=== PATIENT | female | born 1990 | race Caucasian/White ===

== ENCOUNTER → 2016-11-15 | Outpatient (CLI) | payer BC ==
[~2016-11-15] MED LIST: ACET50TA PO; IBUP80TA PO; VITAPRTA PO
== END ==
LOC: M WUC 16:13
PROVIDERS: ATTEND Advanced Practice Midwife
DX: N91.2 Amenorrhea, unspecified (principal)

== ENCOUNTER → 2016-11-17 | Outpatient (CLI) | payer BC | LOC: M WUC 10:47 | PROVIDERS: ATTEND Advanced Practice Midwife | DX: Z34.81 Encounter for supervision of other normal pregnancy, first trimester (principal) ==

== ENCOUNTER → 2016-11-19 | Outpatient (CLI) | payer BC | LOC: M WUC 14:52 | PROVIDERS: ATTEND Advanced Practice Midwife | DX: Z34.81 Encounter for supervision of other normal pregnancy, first trimester (principal) ==

== ENCOUNTER → 2016-11-28 | Day surgery (SDC) | payer BC ==
[~2016-11-28] VITALS: Ht 162.6 cm; Wt 69.4 kg
[~2016-11-28] MED LIST changes: +KETOROLAC 60 MG/2 ML VIAL (J1885) As Ordered ONE; +LIDOCAINE 1% SDV INJ 30 ML VIAL As Ordered ONE; +LIDOCAINE 1% SDV INJ 30 ML VIAL XX ONE; +LIDOCAINE 2% INJ 100 MG/5 ML SDV (FOR ANES.) As Ordered ONE; +LR 1,000 ML IV SCH; +MIDAZOLAM INJ 2 MG/2 ML VIAL (J2250) As Ordered ONE; +ONDANSETRON 4MG/2ML VIAL (J2405) As Ordered ONE; +PROPOFOL 200 MG/20 ML VIAL As Ordered ONE; +SILVER NITRATE APPLICATOR As Ordered ONE; +no medications
--- NOTE | 2016-11-28 13:23 | RO ---
DATE OF PROCEDURE: 11/28/2016 PREOPERATIVE DIAGNOSIS: Intrauterine embryonic demise. POSTOPERATIVE DIAGNOSIS: Intrauterine embryonic demise. PROCEDURE: Suction dilation and curettage. SURGEON: Adilene Kerr MD [employer] GLAZER: None. ANESTHESIA: IV sedation with paracervical block. ESTIMATED BLOOD LOSS: 5 mL. INTRAVENOUS FLUIDS: 300 mL lactated Ringer solution. PREOPERATIVE ANTIBIOTICS: None. SPECIMENS: Products of conception. DESCRIPTION OF OPERATION: After informed consent was obtained and written content was reviewed, the patient was brought to the operating room where IV sedation was administered. She was then prepped and draped in a normal sterile fashion. A time out in the operating room was then performed identifying the patient, the procedure to be performed, as well as drug allergies. A bivalved speculum was then placed revealing the cervix. A paracervical block was then performed using 1% lidocaine, a total of 9 mL. The single tooth tenaculum was then placed on the anterior lip of the cervix. The uterus was sounded to 11 cm. The cervix was then sequentially dilated using Hanks dilators. A #9 curved uterine curette was then advanced through the cervical os to the level of the fundus. This was attached to suction. Suction was then deployed. The uterus was curetted in a 360 degree fashion with moderate amounts of tissue obtained. The suction curette was then removed. A sharp curette was then advanced through the cervical os to the level of the fundus. The uterus was curetted in 360 degree fashion with minimal amounts of tissue obtained. A second pass of the suction curette was then performed only productive of minimal amounts of blood. The curette was then removed from the cervical os. The single tooth tenaculum was removed. The tenaculum sites were hemostatic with silver nitrate. The speculum was then removed. The patient was then taken out of lithotomy position and was taken to recovery in stable condition. Counts were correct.
[2016-11-28 14:05] VITALS: BP 120/69
== END | disposition home or self-care (01) ==
LOC: M SDC 10:20
PROVIDERS: ATTEND Obstetrics & Gynecology
DX: O02.1 Missed abortion (principal); J00 Acute nasopharyngitis [common cold]
CPT/HCPCS: 59820; 85014; 85018; 88305; J1885; J2250; J2405; J3010

== ENCOUNTER → 2017-02-21 | Outpatient (CLI) | payer BC ==
[~2017-02-21] MED LIST changes: -KETOROLAC 60 MG/2 ML VIAL (J1885) As Ordered ONE; -LIDOCAINE 1% SDV INJ 30 ML VIAL As Ordered ONE; -LIDOCAINE 1% SDV INJ 30 ML VIAL XX ONE; -LIDOCAINE 2% INJ 100 MG/5 ML SDV (FOR ANES.) As Ordered ONE; -LR 1,000 ML IV SCH; -MIDAZOLAM INJ 2 MG/2 ML VIAL (J2250) As Ordered ONE; -ONDANSETRON 4MG/2ML VIAL (J2405) As Ordered ONE; -PROPOFOL 200 MG/20 ML VIAL As Ordered ONE; -SILVER NITRATE APPLICATOR As Ordered ONE
== END ==
LOC: M WUC 14:21
PROVIDERS: ATTEND Obstetrics & Gynecology
DX: Z32.01 Encounter for pregnancy test, result positive (principal)

== ENCOUNTER → 2017-02-23 | Outpatient (CLI) | payer BC | LOC: M WUC 14:43 | PROVIDERS: ATTEND Obstetrics & Gynecology | DX: Z32.01 Encounter for pregnancy test, result positive (principal) ==

== ENCOUNTER → 2017-04-10 | Outpatient (CLI) | payer BC ==
[2017-04-10 13:44] LABS: BASO % 0.3 % (0.0-1.0); EOS % 0.4 % (0.0-3.0); LARGE UNSTAINED CELL # 0.1 K/mm3 (0.0-0.4); LYMPH # 1.1 K/mm3 (1.5-6.5); LYMPH % 16.8 % (24.0-44.0); MEAN CORPUSCULAR VOLUME 85.8 fl (80.0-96.0); MONO # 0.4 K/mm3 (0.0-0.8); NEUTROPHILS # 4.9 K/mm3 (1.8-7.7); NEUTROPHILS % 75.5 % (36.0-66.0); PLATELET COUNT, AUTOMATED 343 k/mm3 (150-450); RED CELL DISTRIBUTION WIDTH 12.3 % (11.5-14.5); WHITE BLOOD COUNT 6.5 K/mm3 (4.0-10.0)
[2017-04-11 10:27] LABS: HBsAg Prenatal NEGATIVE (NEGATIVE)
== END ==
LOC: M SMT 11:13
PROVIDERS: ATTEND Advanced Practice Midwife
DX: Z34.81 Encounter for supervision of other normal pregnancy, first trimester (principal)

== ENCOUNTER → 2017-07-17 | Outpatient (CLI) | payer BC ==
[2017-07-17 13:52] LABS: MEAN CORPUSCULAR HEMOGLOBIN 31.3 pg (27.0-33.0); MEAN CORPUSCULAR VOLUME 86.9 fl (80.0-96.0); RED CELL DISTRIBUTION WIDTH 12.4 % (11.5-14.5); WHITE BLOOD COUNT 10.3 K/mm3 (4.0-10.0)
== END ==
LOC: M SMT 10:08
PROVIDERS: ATTEND Obstetrics & Gynecology
DX: Z34.82 Encounter for supervision of other normal pregnancy, second trimester (principal)

== ENCOUNTER → 2017-07-20 | Outpatient (CLI) | payer BC ==
--- NOTE | 2017-07-20 12:14 | REP ---
Clinical: Anatomical evaluation. Comparison: 07/03/2017 . Findings: Examination demonstrates a single live intrauterine in breech presentation. motion is identified by technologist. Placenta is noted anterior fundal and grade one without evidence for placenta previa or abruption. Amniotic fluid volume is normal. Cervix measures 4.6 cm in length and appears closed. No evidence for nuchal cord. Gestational age by LMP 25 weeks 5-day with JAY 10/28/2017 . Gestational age by current measurements 26 weeks 3-day with JAY date 10/23/2017 . FHR equals 139 beats per minute. Estimated weight 866 grams ( 48th percentile). Anatomical assessment demonstrates normal structures including cranium, choroid plexus, cavum, cerebellum/posterior fossa, facial features, lungs, diaphragm, stomach, cord insertion/three-vessel cord, kidneys/bladder, spine, and extremities. Impression: Single live intrauterine in breech presentation demonstrating appropriate interval growth. In conjunction with prior examinations, anatomical assessment is complete and normal. Signed by Kevin Castorena MD 07/20/2017 12:06 P
== END ==
LOC: M RAD 10:59
PROVIDERS: ATTEND Obstetrics & Gynecology
DX: Z36 Encounter for antenatal screening of mother (principal); Z3A.26 26 weeks gestation of pregnancy

== ENCOUNTER → 2017-09-28 | Outpatient (CLI) | payer BC ==
--- NOTE | 2017-09-28 11:08 | REP ---
Clinical: Growth evaluation. Comparison: 07/20/2017 . Findings: Examination demonstrates a single live intrauterine in cephalic presentation. motion is identified by technologist. Placenta is noted anterior and grade II/III without evidence for placenta previa or abruption. Amniotic fluid volume is below normal range. Cervix measures 3.0 cm in length and appears closed. No evidence for nuchal cord. Gestational age by LMP 35 weeks 5 days with JAY 10/28/2017 . Gestational age by current measurements 37 weeks 2 days with JAY 10/17/2017 . FHR equals 147 beats per minute. BPD 9.2 cm 37 weeks 3 days HC 33.3 cm 38 weeks 0 days AC 33.6 cm 37 weeks 4 days FL 7.2 cm 36 weeks 5 days HL 6.3 cm 36 weeks 5 days HC/AC ratio 0.99 Estimated weight 1201 grams ( 81st percentile). Amniotic fluid index equals 6.8 cm (7.8 - 24.9). Umbilical cord SD ratio equals 2.25 (2.00 - 3.00). Impression: 1. Single live advanced gestation in cephalic presentation demonstrating appropriate interval growth. 2. Amniotic fluid volume is mildly below normal range. Signed by Kevin Castorena MD 09/28/2017 10:58 A
== END ==
LOC: M RAD 09:25
PROVIDERS: ATTEND Obstetrics & Gynecology
DX: O26.843 Uterine size-date discrepancy, third trimester (principal); O41.03X0 Oligohydramnios, third trimester, not applicable or unspecified; Z3A.35 35 weeks gestation of pregnancy

== ENCOUNTER → 2017-10-02 | Outpatient (REF) | payer BC | LOC: M LAB REF 17:08 | PROVIDERS: ATTEND Obstetrics & Gynecology | DX: Z34.83 Encounter for supervision of other normal pregnancy, third trimester (principal); Z3A.00 Weeks of gestation of pregnancy not specified ==

== ENCOUNTER 2017-10-21 06:08 | Inpatient (IN) | payer BC ==
[~2017-10-21] VITALS: Ht 162.6 cm; Wt 85.0 kg
[2017-10-21] VITALS (23 sets, daily range): BP systolic 106–144; BP diastolic 58–83
[2017-10-21] MEDS ORDERED: LR 1,000 ML IV SCH (06:23)
[2017-10-21] MEDS ORDERED: PRENTAB7 PO (06:31)
[2017-10-21 06:37] LABS: MEAN CORPUSCULAR HEMOGLOBIN 25.6 pg (27.0-33.0); MEAN CORPUSCULAR HGB CONC 33.1 g/dl (32.0-36.5); MEAN CORPUSCULAR VOLUME 77.2 fl (80.0-96.0); PLATELET COUNT, AUTOMATED 356 10^3/uL (150-450); WHITE BLOOD COUNT 14.5 10^3/uL (4.0-10.0)
[2017-10-21] MEDS ORDERED: FENTANYL 2MCG/ML ROPIVACAINE 0.2% IN 0.9% NACL 200ML IVBAG As Ordered ONE (07:06)
[2017-10-21] MEDS ORDERED: OXYTOCIN 30 UNITS IN 0.9% NaCl 500ML IV BAG (J2590) As Ordered ONE (08:18)
[2017-10-21] MEDS ORDERED: ONDANSETRON 4MG/2ML VIAL (J2405) IV PRN (08:30)
[2017-10-21] MEDS ORDERED: diphenhydrAMINE INJ 50MG/ML VIAL (J1200) IV PRN (08:30)
[2017-10-21] MEDS ORDERED: LACTATED RINGER'S 1000 ML IV PRN (08:30)
[2017-10-21] MEDS ORDERED: ePHEDrine SULFATE 25 MG/5 ML(5MG/ML) SYRINGE IV PRN (08:30)
[2017-10-21] MEDS ORDERED: EPIDURAL COMMENT XX SCH (08:30)
[2017-10-21] MEDS ORDERED: REFRIGERATOR IV KEYS XX PRN (08:30)
[2017-10-21] MEDS ORDERED: NALOXONE INJ 0.4 MG/1 ML VIAL (J2310) IV PRN (08:30)
[2017-10-21] MEDS ORDERED: FENTANYL/ROPIVACAINE/NACL BAG 200 ML EPIDURAL SCH (08:30)
[2017-10-21] MEDS ORDERED: EPIDURAL/PCA KEYS XX PRN (08:30)
--- NOTE | 2017-10-21 10:38 | HPE ---
DATE OF ADMISSION: 10/21/2017 HISTORY: 27-year-old, (G) 3, para (P) 1, female at 39 and 0/7 weeks gestation by last menstrual period (LMP), consistent with 9 week ultrasound, expected date of confinement (EDC) 10/28/2017, who presents with regular contractions every 3 to 4 minutes for the last several hours. She began to leak fluid after presentation to the hospital. Contractions became more intense. She denies vaginal bleed. COURSE: The patient initiated care at 12 weeks gestation on 04/17/2017. Her blood pressure in the first trimester was 134/74 and weight 153 pounds. course was unremarkable. OBSTETRICAL HISTORY: 1. August 2017, 38 week vaginal delivery, 7 pound 3 ounce female . 2. November 2016, miscarriage. MEDICAL HISTORY: Noncontributory. SURGICAL HISTORY: Dilation and curettage (D and C) procedure for missed (AB). ALLERGIES: None. SOCIAL HISTORY: Patient is . She denies cigarettes, alcohol or drug use. She lives in [place]. FAMILY HISTORY: Noncontributory. PHYSICAL EXAMINATION: Blood pressure 134/74. Pulse 84. She appears uncomfortable. Head and Neck Exam: Normal. Lungs: Clear. Heart: Regular rate and rhythm. Abdomen: Nontender. Gravid. heart tones Category 1. Sterile Vaginal Exam: 4 cm, 100% effaced, -1 station, vertex, grossly ruptured, clear fluid. Contractions every 3 minutes. LABS: Blood type B positive. Rubella immune. RPR nonreactive. Hepatitis B and C negative. HIV negative. GBS negative on 10/02/2017. ASSESSMENT: 27-year-old, G3, P1, female at 39 and 0/7 weeks gestation who presents in labor with rupture of membranes. Patient is admitted on 10/21/2017.
[2017-10-21] MEDS ORDERED: IBUPROFEN 800 MG TAB PO PRN (11:00)
[2017-10-21] MEDS ORDERED: MOM 30ML SUSPENSION UDC PO PRN (11:00)
[2017-10-21] MEDS ORDERED: MEASLES,MUMPS,RUBELLA VACCINE INJ (MMR-II) (90707) SC SCH (11:00)
[2017-10-21] MEDS ORDERED: OXYTOCIN DRIP 30 UNITS in APPROPRIATE DILUENT 1 EA IV SCH (11:00)
[2017-10-21] MEDS ORDERED: METHYLERGONOVINE MALEATE 0.2 MG TAB PO PRN (11:00)
[2017-10-21] MEDS ORDERED: DOCUSATE SODIUM 100 MG CAP PO PRN (11:00)
[2017-10-21] MEDS ORDERED: RHOGAM 300 MCG (1500 IU) INJ (J2790) IM SCH (11:00)
[2017-10-21] MEDS ORDERED: ACETAMINOPHEN 500 MG TAB PO PRN (11:00)
[2017-10-21] MEDS ORDERED: DIBUCAINE 1% OINTMENT 30GM TOP PRN (11:00)
--- NOTE | 2017-10-21 11:02 | DNPDOC ---
[facility] Delivery Note Delivery Note DATE OF DELIVERY: 10/21/2017 PREDELIVERY DIAGNOSIS: 39-0/7 weeks' gestation and labor. POST DELIVERY DIAGNOSIS: Delivered. PROCEDURE: Spontaneous vaginal delivery. CONTRACT TECHNICIAN: Paola Greer ANESTHESIA: Epidural. ESTIMATED BLOOD LOSS: 250 mL. FINDINGS: 9 pound 4 ounce male infant, Score 8/9, no nuchal cord . DELIVERY SUMMARY: Patient is a 27-year-old 3 now para 2 -0 -1-2 who was admitted to labor and delivery for spontaneous labor at term. Reports onset of contractions at 0315 this morning. Spontaneous rupture of membranes, clear fluid 0610. Utilized epidural for labor coping. Fully dilated 0910. Vertex delivered spontaneously corpus immediately followed utilizing gentle downward pressure. Viable male child delivered ADRIENNE without difficulty at 1017. Spontaneous respirations. Transitioned on maternal abdomen. Terminal meconium was noted. Cord doubly clamped and cut after pulsations ceased by the father of the baby under my direction. Apgars 8 and 9. Placenta delivered Mcgee and intact at 1027. Three-vessel cord was noted. Fundus firmed with massage and IV Pitocin bolus. Estimated blood loss 250 mL. Cervix, vagina and perineum were inspected. Small first-degree laceration was repaired using utilizing 3-0 Vicryl Rapide. weight 4200 g, 9 lbs. 4 oz. Sponge, sharp and instrument count correct at the close of the procedure. Paola Greer CNM Oct 21, 2017 11:02
[2017-10-22 05:58] VITALS: BP 121/59
[2017-10-22] MEDS ORDERED: PRENATAL VITAMINS CHEWABLE TABLET PO SCH (09:00)
[2017-10-22] MEDS ORDERED: ADVI200C5 PO (10:57)
[2017-10-22] MEDS ORDERED: ACET50TA PO (10:57)
== END 2017-10-22 18:31 | disposition home or self-care (01) | DRG 560 ==
LOC: M LDO 06:08 → M LDI 06:18 → M OBS 12:29
PROVIDERS: ADMIT Specialist; ATTEND Specialist
PROC: 10E0XZZ Delivery of Products of Conception, External Approach (ICD-10-PCS; principal; 2017-10-21)
PROC: 0HQ9XZZ Repair Perineum Skin, External Approach (ICD-10-PCS; 2017-10-21)
DX: O70.0 First degree perineal laceration during delivery (principal); O77.0 Labor and delivery complicated by meconium in amniotic fluid; Z37.0 Single live birth; Z3A.39 39 weeks gestation of pregnancy

== ENCOUNTER → 2020-10-04 | Outpatient (REF) | payer BC ==
[~2020-10-04] MED LIST changes: -ACET50TA PO; +ADVI200C5 PO; +MAPA500T2 PO; +PRENTAB7 PO
== END ==
LOC: M SFHCWAGY 13:24
PROVIDERS: ATTEND Obstetrics & Gynecology
DX: Z12.4 Encounter for screening for malignant neoplasm of cervix (principal)

== ENCOUNTER 2020-12-30 17:19 | Emergency (ER) | payer BC ==
[~2020-12-30] VITALS: Ht 162.6 cm; Wt 75.9 kg
--- OUTSIDE RECORDS SUMMARY | 2020-12-30 17:25 | CCD ---
Author Author [facility] Organization [facility] Address Unknown Phone Unavailable Care Team Providers Care Road Passenger Firer Name Role Phone [facility], [facility] Unavailable Unavailable Re-disclosure Warning The records that you are about to access may contain information from federally-assisted alcohol or drug abuse programs. If such information is present, then the following federally mandated warning applies: This information has been disclosed to you from records protected by federal confidentiality rules (42 CFR part 2). The federal rules prohibit you from making any further disclosure of this information unless further disclosure is expressly permitted by the written consent of the person to whom it pertains or as otherwise permitted by 42 CFR part 2. A general authorization for the release of medical or other information is NOT sufficient for this purpose. The Federal rules restrict any use of the information to criminally investigate or prosecute any alcohol or drug abuse patient.The records that you are about to access may contain highly sensitive health information, the redisclosure of which is protected by Article 27-F of the [facility] Public Health law. If you continue you may have access to information: Regarding HIV / AIDS; Provided by facilities licensed or operated by the [facility] Office of Mental Health; or Provided by the [facility] Office for People With Developmental Disabilities. If such information is present, then the following [facility] mandated warning applies: This information has been disclosed to you from confidential records which are protected by state law. State law prohibits you from making any further disclosure of this information without the specific written consent of the person to whom it pertains, or as otherwise permitted by law. Any unauthorized further disclosure in violation of state law may result in a fine or penitentiary sentence or both. A general authorization for the release of medical or other information is NOT sufficient authorization for further disc losure. Family History Family Member Name Family Member Gender Family Member Status Date o f Status Description Data Source(s) Unknown Unknown Problem [facility] ([facility], ) Unknown Unknown Problem [facility] ([facility], ) Mother diagnosed with "hormone recepter" positive breast CA at age 42yo Encounters Encounter Providers Location Date Indications Data Source(s ) Out[place] [address] [facility] [address] 10/04/2020 12:00:00 AM EST eCW1 ([facility]) Outpatient Attender: LA[facility] 05/27/2020 01:27:01 PM ED [facility] Outpatient Attender: [facility] 05/27/2020 01:26:01 PM ED [facility] Outpatient Attender: [facility] 05/27/2020 01:23:01 PM ED [facility] 01:20:01 PM ED [facility] Outpatient Attender: [facility] 05/27/2020 12:43:01 PM ED [facility] Outpatient Attender: [facility] 05/27/2020 12:43:00 PM ED [facility] Outpatient Attender: [facility] 05/27/2020 12:34:01 PM ED T [facility] Outpatient Attender: NATHANAEL SORIANO [facility] 05/19/2020 01:00:01 PM ED T [facility] Outpatient Attender: NATHANAEL PENNIEAMANDA [facility] 05/19/2020 12:57:00 PM ED T [facility] Outpatient Attender: NATHANAEL PENNIEAMANDA [facility] 03/25/2020 12:13:00 PM ED T [facility] Outpatient Attender: NATHANAEL PENNIEAMANDA [facility] 03/03/2020 12:28:00 PM ED T [facility] Outpatient Attender: NATHANAEL PENNIEAMANDA [facility] 01/27/2020 09:25:01 AM ED T [facility] Outpatient Attender: NATHANAEL PENNIEAMANDA [facility] 01/16/2020 08:02:03 PM ES T [facility] Outpatient Attender: NATHANAEL PENNIEAMANDA [facility] 12/22/2019 01:35:00 PM ES T [facility] Outpatient Attender: NATHANAEL CHRISTIE [facility] 11/26/2019 08:22:33 AM ES T [facility] Outpatient Attender: NATHANAEL CHRISTIE [facility] 11/24/2019 02:41:00 PM ES T [facility] Outpatient Attender: NATHANAEL PENNIEAMANDA [facility] 11/24/2019 02:40:01 PM ES T [facility] Outpatient Attender: NATHANAEL PENNIEAMANDA [facility] 11/24/2019 02:37:01 PM ES T [facility] Outpatient Attender: NATHANAEL PENNIEAMANDA [facility] 11/24/2019 02:28:01 PM ES T [facility] Outpatient Attender: NATHANAEL CHRISTIE [facility] 11/24/2019 02:27:02 PM ES T [facility] Outpatient Attender: NATHANAEL PENNIEAMANDA [facility] 11/24/2019 01:55:00 PM ES [facility] Outpatient Attender: NATHANAEL PENNIEAMANDA [facility] 11/18/2019 08:24:27 AM ES T [facility] Outpatient Attender: NATHANAEL CHRISTIE [facility] 11/17/2019 10:26:00 AM ES T [facility] Outpatient Attender: NATHANAEL PENNIEAMANDA [facility] 11/17/2019 10:17:00 AM ES T [facility] Insurance Providers Payer name Policy type / Coverage type Policy ID Covered green party ID Covered green party's relationship to de la cruz Policy [place] Plan Information [employer] [place] PPO 302/307 [id number] [place] [place] PPO 302/307 [id number] SP [id number] [employer] BCBS P [id number] [place] BCBS of [facility] Other 0 Famil y Dependent [place]oni [place] 0 [employer] BCYO P [id number] [place] BCBS of [facility] Other 0 Famil y Dependent [place] 0 BCBS of [facility] Other 0 Famil y Dependent [place] 0 [employer] BCBS Health Maintenance Organization (HMO) [id number] Family Dependent [id number] [employer] Health Maintenance Organization (HMO) [id number] Family Dependent [id number] [employer] [place] PPO 302/307 [id number] BCBS of [facility] Other 0 Self 0 EXCELLUS BCBS B [id number] P [id number] [employer] [place] PPO 302/307 [id number] [employer] [place] PPO 302/307 [id number] [employer] BC[employer] Health Maintenance Organization (HMO) [id number] Family Dependent [id number] [employer] Health Maintenance Organization (HMO) [id number] Family Dependent [id number] BCBS [place] PPO 302/307 [id number] [employer] BCBS Health Maintenance Organization (HMO) Family Dependent BCBS [place] PPO 302/307 [id number] SP [id number] [employer] BCBS B [id number] S VYS [employer] [id number] 18 [id number] [employer] [id number] Problems, Conditions, and Diagnoses Code Display Name Description Problem Type Effective Dates Data Source(s) 521.00 Dental caries Dental caries 11/24/2019 02:26:17 PM EST [facility] Results ID Date Data Source [id number] 12/08/2020 12:00:00 AM EST [facility] Name Value Range Interpretation Code Description Data Willow rce(s) Supporting Document(s) SARS-CoV2 Rapid Antigen Negative [facility] This lab was ordered by [facility] and reported by [facility]. ID Date Data Source PAP REQUEST FOR SERVICE 10/04/2020 12:00:00 AM EST eCW1 ([facility]) Name Value Range Interpretation Code Description Data Willow rce(s) Supporting Document(s) PAP REQUEST FOR SERVICE eCW1 ( [facility]) ID Date Data Source [id number] 05/27/2020 12:32:31 PM EDT [facility] Vital SignsBlood Pressure: 130/86 Patient History Medical History:Surgical History:Family History:Social/Personal History: Current Problems: Dental caries (ICD-521.00) (ZHF26-Q48.9)Problem list reviewed during this update.Medication list reviewed during this update.No known medications.Allergy list reviewed during this update.No known allergies. Dental Chart: Procedures:Type - CDT Code - Description B - (D0274) Bitewings, 4 radiographic images (Performed by Heidi Johns RDH) B - (D0120) Periodic oral evaluation - established patient (Performed by JOSE Astudillo Anthony) B - (D1110) Prophylaxis, adult (Performed by Heidi Johns RDH) Chart Notes:jennifer (May 27 2020 1:06PM): [facility](-) NC per ptAdult prophy, 4bwx- dexis, IO/EO completedExam with Dr Damian-Patient brushes twice/day and is flossing regularly.Generalized marginal biofilm, no calc. Kenji hand scaling well.Gingiva-healthy and pink, light bleeding on papillaOHI-brushing twice/day, flossing Patient was cooperative. Pt is a non-smoker.NV-6 months recall, no significant findingsAdditional PPE requirements due to COVID-19 in the dental setting, N95, surgical mask, hair covering, gown, face shield. Heidi Johns RDH by jennifer (05/27/2020 1:06 PM): ; josefina (May 27 2020 1:18PM): [facility](W/ Pt.) Reviewed Xrays. Exam: no caries detected. Tx planned explained to pt. OCS: WNL. Pt was cooperative. OHI givenReferral: N/ANV:recallWenatalia Heidi PICKETT by josefina (05/27/2020 1:18 PM): Tooth Notes and Watches:- Tooth 15 Watch: B - JOSE Mayberry Yong by nathanael (04/04/2018 2:27 PM): - Tooth 3 Watch: lingualGraceJordana frausto RDH by diane (09/11/2019 2:20 PM): Assessment & Plan Allergies:No Known Allergies (updated 05/27/2020) Name Value Range Interpretation Code Description Data Willow rce(s) Supporting Document(s) ID Date Data Source [id number] 11/24/2019 01:59:48 PM [facility] Current Problems: Dental caries (ICD-521 .00) (RIM36-T03.9)Problem list reviewed during this update.Medication list reviewed during this update.No known medications.Allergy list reviewed during this update.No known allergies. Dental Chart: Procedures:Type - CDT Code - Description B - (D2391) Resin-based composite - one surface, posterior on Tooth # 15 on Tooth Surface B (Performed by JOSE Burch Yong) Chart Notes:nathanael (Nov 24 2019 2:26PM): Islam #15cc: noneMed hx - reviewedTooth #15 - B composite: prep., excavated decay, gluma, restored with Ketac aplicap universal; POIG1 carp 4% articaine/1:200,000 epivery cooperativeNV - recallJOSE Burch Yong by nathanael (11/24/2019 2:26 PM): Tooth Notes and Watches:- Tooth 15 Watch: B - JOSE Mayberry Yong by nathanael (04/04/2018 2:27 PM): - Tooth 3 Watch: Jordana Doll RDH by diane (09/11/2019 2:20 PM): Assessment & Plan Problems:Added: Dental caries (ICD-521.00) (BSU13-G93.9)Allergies:No Known Allergies (updated 09/11/2019) Name Value Range Interpretation Code Description Data Willow rce(s) Supporting Document(s) Procedure Social History Code Duration Value Status Description Data Source(s ) Smoking 10/04/2020 12:00:00 AM EST Never Smoker completed Never S moker [facility] ([facility]) Vital Signs ID Date Data Source UNK Name Value Range Interpretation Code Description Data Source(s) Diastolic blood pressure 68 mm[Hg] 68 mm[Hg] W1 ([facility]) Systolic blood pressure 122 mm[Hg] 122 mm[Hg] e CW1 ([facility]) Body mass index (BMI) [Ratio] 28.83 kg/m2 28.83 kg/m2 [facility] ([facility]) Body height 64 [in_i] 64 [in_i] W1 ([facility]) Body weight 168 [lb_av] 168 [lb_av] W1 ([facility])
--- OUTSIDE RECORDS SUMMARY | 2020-12-30 17:25 | CCD ---
Author Author [facility] Organization [facility] Address Unknown Phone Unavailable Care Team Providers Care Coach Builder Name Role Phone Adilene Kerr Unavailable PROBLEMS No Information ALLERGIES No Known Allergies ENCOUNTERS from 1992 to 2020-10-19 Encounter Location Date Provider Diagnosis [facility] [address] [place] [address] Sep, Adilene Cirilo Gynecologic exam nor mal Z01.419 and Encounter for removal of intrauterine contraceptive device (IUD) Z30.432 IMMUNIZATIONS No Information SOCIAL HISTORY Tobacco Use: Social History Observation Description Date Details (start date - stop date) Never Smoker Sex Assigned At : Social History Observation Description Sex Assigned At Unknown Alcohol Screening: Question Answer Notes Did you have a drink containing alcohol in the past year? No Points 0 Interpretation Negative Tobacco Use: Question Answer Notes Are you a: never smoker REASON FOR REFERRAL No Information VITAL SIGNS Weight 168 lbs Sep, Height 64 in Sep, BMI 28.83 kg/m2 Sep, Blood pressure systolic 122 mm Hg Sep, Blood pressure diastolic 68 mm Hg Sep, MEDICATIONS Medication SIG (Take, Route, Frequency, Duration) Notes Start Da te End Date Status Mirena (52 MG) Active PROCEDURES No Information RESULTS Component Value Reference Range PAP REQUEST FOR SERVICE Reviewed date:10/06/2020 10:38:09 Interpretation: Performing Lab:[facility], [facility] [address] [facility] [address] , [place] [address] REASON FOR VISIT ANNUAL/MIRENA REMOVAL MEDICAL (GENERAL) HISTORY Type Description Date Hospitalization History childbirth Goals Section No Information Health Concerns No Information MEDICAL EQUIPMENT No Information MENTAL STATUS No Information FUNCTIONAL STATUS No Information ASSESSMENTS Encounter Date Diagnosis Assessment Notes Treatment Notes Treatm ent Clinical Notes Sep, Gynecologic exam normal (ICD-10 - Z01.419) Pap smear obtained Normal exam Follow-up as needed Sep, Encounter for removal of int rauterine contraceptive device (IUD) (ICD-10 - Z30.432) PLAN OF TREATMENT Treatment Notes Assessment Notes Clinical Notes Gynecologic exam normal Pap smear obtain edNormal examFollow-up as needed Next Appt Details prn Reason: Insurance Providers Payer Name Payer Address Payer Phone Insured Name Patient Relati onship to Insured Coverage Start Date Coverage End Date BCBS [place] O [phone] [facility] [employer] [place] [address] LIDYA LO self
--- NOTE | 2020-12-30 19:43 | REPVR ---
PROCEDURE INFORMATION: Exam: US First Trimester, Transabdominal Exam date and time: 12/30/2020 7:32 PM Age: 30 years old Clinical indication: Lmp or gestational age (in weeks): 11/12/2020; Other: Vaginal bleeding with cramps and clots; ; Additional info: Vaginal bleeding, 7 weeks TECHNIQUE: Imaging protocol: Real-time transabdominal obstetrical ultrasound of the maternal pelvis and a first trimester , less than 14 weeks 0 days, with image documentation. COMPARISON: No relevant prior studies available. FINDINGS: Gestation: Single irregularly-shaped gestational sac in the uterus demonstrating boggy edematous changes. Single pole demonstrated within the gestational sac with an amorphous shaped measuring 2.3 mm. Gestational age is 5 weeks 6 days based on measurement of crown-rump length. Embryonic/ heart rate: There is absent cardiac activity consistent with early failure. Placenta: Unremarkable. No subchorionic bleed. Amniotic fluid: Amniotic fluid is normal for gestational age. BIOMETRY: Gestational age (AUA): See "Gestation" finding. MATERNAL: Uterus: Unremarkable. Cervix: Unremarkable. Right adnexa: Unremarkable. Left adnexa: Unremarkable. Intraperitoneal space: No intraperitoneal free fluid. IMPRESSION: 1. Single irregularly-shaped gestational sac in the uterus demonstrating boggy edematous changes. 2. There is absent cardiac activity consistent with early failure. Electronically signed by: Champ Miller On 12/30/2020 19:43:30 PM
--- OUTSIDE RECORDS SUMMARY | 2020-12-30 19:59 | CCD ---
Author Author [facility] Organization [facility] Address Unknown Phone Unavailable Care Team Providers Care Stamp Redemption Clerk Name Role Phone [facility] Unavailable Unavailable Re-disclosure Warning The records [...] is protected by Article 27-F of the [facility] Public Health law. If you continue you may have access to information: Regarding HIV / AIDS; Provided by facilities licensed or operated by the [facility] Office of Mental Health; or Provided by the [facility] Office for People With Developmental Disabilities. If such information is present, then the following [facility] mandated warning applies: This information has [...] Description Data Source(s) Unknown Unknown Problem MEDENT ([facility], ) Unknown Unknown Problem MEDENT ([facility], ) Mother diagnosed with "hormone recepter" positive breast CA at age 44yo Encounters Encounter Providers Location Date Indications Data Source(s ) [place] [address] [facility] [place] [address] 10/04/2020 12:00:00 AM EST eCW1 ([facility]) Outpatient Attender: LAURO [facility] 05/27/2020 01:27:01 PM ED [facility] Outpatient Attender: [facility] 05/27/2020 01:26:01 PM ED [facility] Outpatient Attender: [facility] 05/27/2020 01:23:01 PM ED [facility] Outpatient Att[facility]: [facility] 05/27/2020 01:20:01 PM ED [facility] Outpatient Attender: [facility] 05/27/2020 12:43:01 PM ED [facility] Outpatient Attender: [facility] 05/27/2020 12:43:00 PM ED [facility] Outpatient Attender: [facility] 05/27/2020 12:34:01 PM ED T [facility] Outpatient Attender: NATHANAEL SORIANO [facility] 05/19/2020 01:00:01 PM ED T [facility] Outpatient Attender: NATHANAEL PENNIEAMANDA [facility] 05/19/2020 12:57:00 PM ED T [facility] Outpatient Attender: NATHANAEL PENNIEAMANDA [facility] 03/25/2020 12:13:00 PM ED T [facility] Outpatient Attender: NATHANAEL PENNIEAMANDA [facility] 03/03/2020 12:28:00 PM ED T [facility] Outpatient Attender: NATHANAEL PENNIEAMANDA [facility] 01/27/2020 09:25:01 AM ED T [facility] Outpatient Attender: NATHANAEL PENNIEAMANDA [facility] 01/16/2020 08:02:03 PM ES T [facility] Outpatient Attender: NATHANAEL PENNIEAMANDA [facility] 12/22/2019 01:35:00 PM ES T [facility] Outpatient Attender: NATHANAEL CHRISTIE [facility] 11/26/2019 08:22:33 AM ES T [facility] Outpatient Attender: NATHANAEL CHRISTIE [facility] 11/24/2019 02:41:00 PM ES T [facility] Outpatient Attender: NATHANAEL PENNIEAMANDA [facility] 11/24/2019 02:40:01 PM ES T [facility] Outpatient Attender: NATHANAEL PENNIEAMANDA [facility] 11/24/2019 02:37:01 PM ES T [facility] Outpatient Attender: NATHANAEL PENNIEAMANDA [facility] 11/24/2019 02:28:01 PM ES T [facility] Outpatient Attender: NATHANAEL CHRISTIE [facility] 11/24/2019 02:27:02 PM ES T [facility] Outpatient Attender: NATHANAEL PENNIEAMANDA [facility] 11/24/2019 01:55:00 PM ES [facility] Outpatient Attender: NATHANAEL PENNIEAMANDA [facility] 11/18/2019 08:24:27 AM ES T [facility] Outpatient Attender: NATHANAEL CHRISTIE [facility] 11/17/2019 10:26:00 AM ES T [facility] Outpatient Attender: NATHANAEL PENNIEAMANDA [facility] 11/17/2019 10:17:00 AM ES T [facility] Insurance Providers Payer name Policy type / Coverage type Policy ID Covered republican ID Covered republican's relationship to de la cruz Policy [place] Plan Information [employer] [place] P[place]/307 [id number] [place] [place] PPO 302/307 [id number] SP [id number] [employer] BC[employer] P [id number] [place] BCBS of [facility] Other 0 Famil y Dependent [place] 0 [employer] BCYO P [id number] [place] BC[employer] of [facility] Other 0 Famil y Dependent [place] 0 BCBS of [facility] Other 0 Famil y Dependent [place] 0 [employer] Health Maintenance Organization (HMO) [id number] Family Dependent [id number] [employer] Health Maintenance Organization (HMO) [id number] Family Dependent [id number] [employer] [place] PPO 302/307 [id number] HU2 [id number] BCBS of [facility] Other 0 Self 0 [employer] BCBS B [id number] P [id number] [id number] [employer] [place] PPO 302/307 [id number] HU2 [id number] [employer] [place] PPO 302/307 [id number] HU2 [id number] [employer] Health Maintenance Organization (HMO) [id number] Family Dependent [id number] [employer] Health Maintenance Organization (HMO) [id number] Family Dependent [id number] [employer] [place] PPO 302/307 [id number] HU2 [id number] [employer] Health Maintenance Organization (HMO) Family Dependent [employer] [place] PPO 302/307 [id number] SP [id number] [employer] BCBS B [id number] S V[place] [employer] [id number] 18 [id number] [employer] [id number] 01 [id number] Problems, Conditions, and Diagnoses Code Display Name Description Problem Type Effective Dates Data Source(s) 521.00 Dental caries Dental caries 11/24/2019 02:26:17 PM EST [facility] Results ID Date Data Source [id number] 12/08/2020 12:00:00 AM EST [facility] Name Value Range Interpretation Code Description Data Willow rce(s) Supporting Document(s) SARS-CoV2 Rapid Antigen Negative [facility] This lab was ordered by [facility] and reported by [facility]. ID Date Data Source PAP REQUEST FOR SERVICE 10/04/2020 12:00:00 AM EST eCW1 ([facility]) Name Value Range Interpretation Code Description Data Willow rce(s) Supporting Document(s) PAP REQUEST FOR SERVICE eCW1 ( [facility]) ID Date Data Source [id number] 05/27/2020 12:32:31 PM EDT [facility] Vital SignsBlood Pressure: 130/86 Patient History Medical History:Surgical History:Family History:Social/Personal History: Current Problems: Dental caries (ICD-521.00) (JCX26-P01.9)Problem list reviewed during this update.Medication list reviewed during this update.No known medications.Allergy list reviewed during this update.No known allergies. Dental Chart: Procedures:Type - CDT Code - Description B - (D0274) Bitewings, 4 radiographic images (Performed by Heidi Jhons RDH) B - (D0120) Periodic oral evaluation - established patient (Performed by JOSE Astudillo Anthony) B - (D1110) Prophylaxis, adult (Performed by Heidi Johns RDH) Chart Notes:jennifre (May 27 2020 1:06PM): [facility](-) NC per [...] PM): ; josefina (May 27 2020 1:18PM): [facility](W/ Pt.) Reviewed Xrays. Exam: no caries detected. [...] rce(s) Supporting Document(s) ID Date Data Source [id number] 11/24/2019 01:59:48 PM [facility] Current Problems: Dental caries (ICD-521 .00) (EHY11-E27.9)Problem list reviewed during this update.Medication list reviewed during this update.No known medications.Allergy list reviewed during this update.No known allergies. Dental Chart: Procedures:Type - CDT Code - Description B - (D2391) Resin-based composite - one surface, posterior on Tooth # 15 on Tooth Surface B (Performed by JOSE Burch Yong) Chart Notes:nathanael (Nov 24 2019 2:26PM): Uatsdin #15cc: noneMed hx - reviewedTooth #15 - [...] Assessment & Plan Problems:Added: Dental caries (ICD-521.00) (DKS13-B44.9)Allergies:No Known Allergies (updated 09/11/2019) Name Value Range Interpretation Code Description Data Willow rce(s) Supporting Document(s) Procedure Social History Code Duration Value Status Description Data Source(s ) Smoking 10/04/2020 12:00:00 AM EST Never Smoker completed Never S moker [facility] ([facility]) Vital Signs ID Date Data Source UNK Name Value Range Interpretation Code Description Data Source(s) Diastolic blood pressure 68 mm[Hg] 68 mm[Hg] W1 ([facility]) Systolic blood pressure 122 mm[Hg] 122 mm[Hg] e CW1 ([facility]) Body mass index (BMI) [Ratio] 28.83 kg/m2 28.83 kg/m2 [facility] ([facility]) Body height 64 [in_i] 64 [in_i] W1 ([facility]) Body weight 168 [lb_av] 168 [lb_av] W1 ([facility])
[2020-12-30 20:08] LABS: BASO % 0.6 % (0.0-1.0); EOS # 0.1 10^3/uL (0.0-0.5); EOS % 1.5 % (0.0-3.0); HEMATOCRIT 37.5 % (36.0-47.0); HEMOGLOBIN 12.5 g/dl (12.0-15.5); LYMPH # 1.5 10^3/uL (1.5-5.0); LYMPH % 27.5 % (24.0-44.0); MEAN CORPUSCULAR HEMOGLOBIN 28.8 pg (27.0-33.0); MEAN CORPUSCULAR HGB CONC 33.3 g/dl (32.0-36.5); MEAN CORPUSCULAR VOLUME 86.4 fl (80.0-96.0); MONO # 0.5 10^3/uL (0.0-0.8); MONO % 8.5 % (2.0-8.0); NEUTROPHILS # 3.3 10^3/uL (1.5-8.5); NEUTROPHILS % 61.5 % (36.0-66.0); PLATELET COUNT, AUTOMATED 298 10^3/uL (150-450); RED BLOOD COUNT 4.34 10^6/uL (4.00-5.40); WHITE BLOOD COUNT 5.4 10^3/uL (4.0-10.0)
[2020-12-30 20:12] VITALS: BP 123/68
[2020-12-30 20:40] LABS: BLOOD UREA NITROGEN 9 MG/DL (7-18); CALCIUM LEVEL 9.4 MG/DL (8.5-10.1); CARBON DIOXIDE LEVEL 26 MEQ/L (21-32); CHLORIDE LEVEL 107 MEQ/L (98-107); CREATININE FOR GFR 0.67 MG/DL (0.55-1.30); GLOMERULAR FILTRATION RATE > 60.0 (>60); GLUCOSE, FASTING 91 MG/DL (70-100); HCG, SERUM QUANTITATIVE 325 MIU/ML; POTASSIUM SERUM 3.6 MEQ/L (3.5-5.1); SODIUM LEVEL 141 MEQ/L (136-145)
== END 2020-12-30 21:56 | disposition home or self-care (01) ==
LOC: M ED 17:19
DX: O03.9 Complete or unspecified spontaneous abortion without complication (principal); Z87.59 Personal history of other complications of pregnancy, childbirth and the puerperium; Z87.42 Personal history of other diseases of the female genital tract; Z98.890 Other specified postprocedural states; Z80.3 Family history of malignant neoplasm of breast

== ENCOUNTER → 2021-01-01 | Outpatient (CLI) | payer BC | END | disposition home or self-care (01) | LOC: M LAB 09:47 | PROVIDERS: ATTEND Physician Assistant | DX: O20.9 Hemorrhage in early pregnancy, unspecified (principal); Z3A.00 Weeks of gestation of pregnancy not specified ==

== ENCOUNTER 2021-01-04 09:04 | Day surgery (SDC) | payer BC ==
[~2021-01-04] VITALS: Ht 162.6 cm; Wt 75.3 kg
--- OUTSIDE RECORDS SUMMARY | 2021-01-04 09:08 | CCD ---
Author Author [facility] Organization [facility] Address Unknown Phone Unavailable Care Team Providers Care Court Specialist Name Role Phone [facility] Unavailable Unavailable Re-disclosure Warning The records [...] is protected by Article 27-F of the [facility] Public Health law. If you continue you may have access to information: Regarding HIV / AIDS; Provided by facilities licensed or operated by the [facility] Office of Mental Health; or Provided by the [facility] Office for People With Developmental Disabilities. If such information is present, then the following [facility] mandated warning applies: This information has been [...] law may result in a fine or long-term sentence or both. A general authorization for the release of medical or other information is NOT sufficient authorization for further disc losure. Family History Family Member Name Family Member Gender Family Member Status Date o f Status Description Data Source(s) Unknown Unknown Problem MEDENT ([facility], ) Unknown Unknown Problem MEDENT ([facility], ) Mother diagnosed with "hormone recepter" positive breast CA at age 42yo Encounters Encounter Providers Location Date Indications Data Source(s ) Outpatient [address] [facility] [address] 10/04/2020 12:00:00 AM EST eCW1 ([facility]) [facility] 05/27/2020 01:27:01 PM ED [facility] Outpatient Attender: [facility] 05/27/2020 01:26:01 PM ED [facility] Outpatient Attender: [facility] 05/27/2020 01:23:01 PM ED [facility] Outpatient [facility] 05/27/2020 01:20:01 PM ED [facility] Outpatient Attender: [facility] 05/27/2020 12:43:01 PM ED [facility] Outpatient Attender: [facility] 05/27/2020 12:43:00 PM ED [facility] Outpatient Attender: [facility] 05/27/2020 12:34:01 PM ED T [facility] Outpatient Attender: NATHANAEL PENNIEAMANDA [facility] 05/19/2020 01:00:01 PM ED T [facility] Outpatient Attender: NATHANAEL PENNIEAMANDA [facility] 05/19/2020 12:57:00 PM ED T [facility] Outpatient Attender: NATHANAEL PENNIEAMANDA [facility] 03/25/2020 12:13:00 PM ED T [facility] Outpatient Attender: NATHANAEL PENNIEAMANDA [facility] 03/03/2020 12:28:00 PM ED T [facility] Outpatient Attender: NATHANAEL PENNIEAMANDA [facility] 01/27/2020 09:25:01 AM ED T [facility] Outpatient Attender: NATHANAEL PENNIEAMANDA [facility] 01/16/2020 08:02:03 PM ES T [facility] Outpatient Attender: NATHANAEL PENNIEAMANDA [facility] 12/22/2019 01:35:00 PM ES T [facility] Outpatient Attender: NATHANAEL CHRISTIE [facility]OW[facility] 11/26/2019 08:22:33 AM ES T [facility] Outpatient Attender: NATHANAEL CHRISTIE [facility]OW[facility] 11/24/2019 02:41:00 PM ES T [facility] Outpatient Attender: NATHANAEL PENNIEAMANDA [facility] 11/24/2019 02:40:01 PM ES T [facility] Outpatient Attender: NATHANAEL PENNIEAMANDA [facility] 11/24/2019 02:37:01 PM ES T [facility] Outpatient Attender: NATHANAEL PENNIEAMANDA [facility] 11/24/2019 02:28:01 PM ES T [facility] Outpatient Attender: NATHANAEL PENNIEAMANDA [facility] 11/24/2019 02:27:02 PM ES T [facility] Outpatient Attender: NATHANAEL PENNIEAMANDA [facility] 11/24/2019 01:55:00 PM ES [facility] Outpatient Attender: NATHANAEL PENNIEAMANDA [facility] 11/18/2019 08:24:27 AM ES T [facility] Outpatient Attender: NATHANAEL CHRISTIE [facility] 11/17/2019 10:26:00 AM ES T [facility] Outpatient Attender: NATHANAEL PENNIEAMANDA [facility] 11/17/2019 10:17:00 AM ES T [facility] Insurance Providers Payer name Policy type / Coverage type Policy ID Covered republican ID Covered republican's relationship to de la cruz Policy [place] Plan Information [employer] [place] P[place] 302/307 [id number] HU2 [id number] [employer] [place] PPO 302/307 [id number] SP [id number] [employer] BCBS P [id number] S VYS BCBS of [facility] Other 0 Famil y Dependent [place] 0 [employer] BCYO P [id number] S [place] BC[employer] of [facility] Other 0 Famil y Dependent [place] 0 [facility] [facility] Other 0 Famil y Dependent [place] 0 [employer] Health Maintenance Organization (HMO) [id number] Family Dependent [id number] [employer] Health Maintenance Organization (HMO) [id number] Family Dependent [id number] [employer] [place] PPO 302/307 [id number] HU2 [id number] BCBS of [facility] Other 0 Self 0 [employer] BCBS B [id number] P CGP [id number] [employer] [place] PPO 302/307 [id number] HU2 [id number] [employer] [place] PPO 302/307 [id number] HU2 [id number] [employer] Health Maintenance Organization (HMO) [id number] Family Dependent [id number] [employer] Health Maintenance Organization (HMO) [id number] Family Dependent [id number] [employer] [place] PPO 302/307 [id number] HU2 [id number] [employer] Health Maintenance Organization (HMO) Family Dependent [employer] [place] PPO 302/307 [id number] SP [id number] [employer] BCBS B [id number] S VYS [employer] [id number] [employer] [id number] 01 [id number] Problems, Conditions, and Diagnoses Code Display Name Description Problem Type Effective Dates Data Source(s) 521.00 Dental caries Dental caries 11/24/2019 02:26:17 PM EST [facility] Results ID Date Data Source [id number] 12/08/2020 12:00:00 AM EST [facility] Name Value Range Interpretation Code Description Data Willow rce(s) Supporting Document(s) SARS-CoV2 Rapid Antigen Negative [facility] This lab was ordered by [facility] and reported by [facility]. ID Date Data Source PAP REQUEST FOR SERVICE 10/04/2020 12:00:00 AM EST eCW1 ([facility]) Name Value Range Interpretation Code Description Data Willwo rce(s) Supporting Document(s) PAP REQUEST FOR SERVICE eCW1 ( [facility]) ID Date Data Source [id number] 05/27/2020 12:32:31 PM EDT [facility] Vital SignsBlood Pressure: 130/86 Patient History Medical History:Surgical History:Family History:Social/Personal History: Current Problems: Dental caries (ICD-521.00) (LTX15-A71.9)Problem list reviewed during this update.Medication list reviewed [...] josefina (May 27 2020 1:18PM): [facility](W/ Pt.) Reviewed Xrays. Exam: no caries detected. Tx planned explained to pt. OCS: WNL. Pt was cooperative. OHI givenReferral: N/ANV:recallWeaver Heidi PICKETT by josefina (05/27/2020 1:18 PM): Tooth Notes and Watches:- Tooth 15 Watch: B - JOSE Mayberry Yong by nathanael (04/04/2018 2:27 PM): - Tooth 3 Watch: lingualGrJordana mott RDH by diane (09/11/2019 2:20 PM): Assessment & Plan Allergies:No Known Allergies (updated 05/27/2020) Name Value Range Interpretation Code Description Data Willow rce(s) Supporting Document(s) ID Date Data Source [id number] 11/24/2019 01:59:48 PM [facility] Current Problems: Dental caries (ICD-521 .00) (CCP24-X39.9)Problem list reviewed during this update.Medication list reviewed during this update.No known medications.Allergy list reviewed during this update.No known allergies. Dental Chart: Procedures:Type - CDT Code - Description B - (D2391) Resin-based composite - one surface, posterior on Tooth # 15 on Tooth Surface B (Performed by JOSE Burch Yong) Chart Notes:nathanael (Nov 24 2019 2:26PM): [place] #15cc: noneMed hx - reviewedTooth #15 - [...] Assessment & Plan Problems:Added: Dental caries (ICD-521.00) (UOO33-S27.9)Allergies:No Known Allergies (updated 09/11/2019) Name Value Range Interpretation Code Description Data Willow rce(s) Supporting Document(s) Procedure Social History Code Duration Value Status Description Data Source(s ) Smoking 10/04/2020 12:00:00 AM EST Never Smoker completed Never S moker [facility] ([facility]) Vital Signs ID Date Data Source UNK Name Value Range Interpretation Code Description Data Source(s) Diastolic blood pressure 68 mm[Hg] 68 mm[Hg] W1 ([facility]) Systolic blood pressure 122 mm[Hg] 122 mm[Hg] e CW1 ([facility]) Body mass index (BMI) [Ratio] 28.83 kg/m2 28.83 kg/m2 [facility] ([facility]) Body height 64 [in_i] 64 [in_i] W1 ([facility]) Body weight 168 [lb_av] 168 [lb_av] W1 ([facility])
[2021-01-04] MEDS ORDERED: dexameTHASONE 4 MG/ML 1ML VIAL (J1100 PER 1MG) As Ordered ONE (09:14)
[2021-01-04] MEDS ORDERED: MIDAZOLAM INJ 2MG/2ML VIAL (J2250 PER 1MG) As Ordered ONE (09:14)
[2021-01-04] MEDS ORDERED: propofoL 200 MG/20 ML VIAL As Ordered ONE (09:14)
[2021-01-04] MEDS ORDERED: LIDOCAINE 2% 100MG/5ML SDV (FOR ANES.) As Ordered ONE (09:14)
[2021-01-04] MEDS ORDERED: fentaNYL 100 MCG/2 ML INJECTION (J3010) As Ordered ONE (09:14)
[2021-01-04] MEDS ORDERED: ONDANSETRON 4MG/2ML VIAL As Ordered ONE (09:14)
[2021-01-04] MEDS ORDERED: SILVER NITRATE APPLICATOR As Ordered ONE (10:39)
[2021-01-04] MEDS ORDERED: KETOROLAC 60MG 2ML VIAL As Ordered ONE (10:52)
[2021-01-04] MEDS ORDERED: LR 1,000 ML IV SCH (11:15)
[2021-01-04] MEDS ORDERED: fentaNYL 100 MCG/2 ML INJECTION (J3010) IV PRN (11:15)
[2021-01-04] MEDS ORDERED: PERCOCET 5MG/325MG TAB PO PRN (11:15)
[2021-01-04 12:15] VITALS: BP 132/61
[2021-01-04] MEDS ORDERED: DOXYCYCLINE HYCLATE 100MG TABLET PO ONE (12:15)
[2021-01-04] MEDS ORDERED: ACETAMINOPHEN 500 MG TAB PO ONE (12:15)
--- NOTE | 2021-01-04 14:48 | ROOPDOC ---
[facility] Report Of Operation Report of Operation DATE OF PROCEDURE: 01/04/21 DATE OF PROCEDURE: January 04, 2021 PREPROCEDURE DIAGNOSES: embryonic demise, 7 weeks POSTPROCEDURE DIAGNOSES: Same. PROCEDURE: D+E+C SURGEON: Lance Wharton MD ANESTHESIA: Gen. via LMA. ESTIMATED BLOOD LOSS: Approximately 50 mL. COMPLICATIONS: None. FINDINGS: Moderate amount of POC's, retroverted uterus PROCEDURE NOTE: Patient taken to the operating room where LMA anesthesia was induced. She was prepped and draped in a sterile fashion in the dorsal lithotomy position. The bladder was emptied with a catheter. Speculum was placed in the vagina. The anterior lip of the cervix was grasped with tenaculum. Cervix was dilated with tapered dilators. A #8 mm suction curetted was inserted through the internal os. The suction device was activated and the curette was gently rotated until products of conception were noted coming through the suction tubing. Sharp curettage was performed. Good hemostasis was noted. All instruments removed. Sponges counts were correct. LANCE WHARTON MD Jan 04, 2021 14:48
== END 2021-01-04 12:22 | disposition home or self-care (01) ==
LOC: M SDC 09:04
PROVIDERS: ATTEND Specialist
DX: O02.1 Missed abortion (principal)
CPT/HCPCS: 59820; 88305; J1100; J1885; J2250; J2405; J3010; U0002

== ENCOUNTER → 2021-04-01 | Outpatient (CLI) | payer BC ==
[2021-04-01 12:40] LABS: HCG, SERUM QUALITATIVE POSITIVE (NEGATIVE)
[2021-04-01 20:04] LABS: HCG, SERUM QUANTITATIVE 64854 MIU/ML
== END ==
LOC: M LAB 11:47
PROVIDERS: ATTEND Advanced Practice Midwife
DX: O26.851 Spotting complicating pregnancy, first trimester (principal)

== ENCOUNTER → 2021-04-03 | Outpatient (CLI) | payer BC | LOC: M LAB 11:54 | PROVIDERS: ATTEND Advanced Practice Midwife | DX: O26.851 Spotting complicating pregnancy, first trimester (principal) ==

== ENCOUNTER → 2021-04-21 | Outpatient (REF) | payer BC ==
[2021-04-21 16:00] LABS: HEMATOCRIT 36.3 % (36.0-47.0); HEMOGLOBIN 12.4 g/dl (12.0-15.5); MEAN CORPUSCULAR HEMOGLOBIN 29.7 pg (27.0-33.0); MEAN CORPUSCULAR HGB CONC 34.2 g/dl (32.0-36.5); MEAN CORPUSCULAR VOLUME 86.8 fl (80.0-96.0); PLATELET COUNT, AUTOMATED 315 10^3/uL (150-450); RED BLOOD COUNT 4.18 10^6/uL (4.00-5.40); WHITE BLOOD COUNT 5.8 10^3/uL (4.0-10.0)
[2021-04-21 16:55] LABS: HEPATITIS C VIRUS ABY INDEX < 0.0 INDEX (<0.8); HIV 1&2 SCREEN CENTAUR NEGATIVE (NEGATIVE)
== END ==
LOC: M PLALAB 13:41
PROVIDERS: ATTEND Obstetrics & Gynecology
DX: Z34.91 Encounter for supervision of normal pregnancy, unspecified, first trimester (principal)

== ENCOUNTER → 2021-06-13 | Outpatient (CLI) | payer BC ==
--- NOTE | 2021-06-13 15:05 | REP ---
INDICATION: ANATOMY. COMPARISON: 12/30/2020. TECHNIQUE: Real-time sonographic evaluation of the gravid uterus performed. FINDINGS: Estimated gestational age is19 weeks 5 days, EDC 11/02/2021. Today's measurements indicate appropriate growth. Presentation: Transverse Placenta anterior, posteriorly on the left, grade 1, with evidence of complete placenta previa. heart rate is recorded at 150 beats per minute. Amniotic fluid is subjectively normal. Closed cervical length is measured at 5.3 cm. Biometry chart: BPD: 44 mm, 19 weeks 3 days, 42nd percentile. HC: 169 mm, 19 weeks 4 days, 45th percentile AC: 136 mm, 19 weeks 0 days, 36th percentile Femur length: 30 mm, 19 weeks 1 days, 36th percentile HC to AC ratio: 1.25, normal range 1.06-1.25. Estimated weight: 277g, 19th percentile. anatomy: Cranium: Grossly normal Lateral Ventricles/Choroid Plexus: Grossly normal Posterior Fossa/Cerebellum: Grossly normal Nose/lips/profile: Grossly normal Four chamber heart: Not well seen due to position Right ventricular outflow tract: Grossly normal Left ventricular outflow tract: Not well seen due to position Left-sided stomach: Grossly normal Kidneys: Grossly normal Bladder: Grossly normal Cord Insertion: Grossly normal 3 vessel cord: Grossly normal Spine: Grossly normal IMPRESSION: Viable single intrauterine gestation as above. Complete placenta previa. Four-chamber heart and left ventricular outflow tract not well seen due to position. <Electronically signed by Arnulfo Hagan > 06/13/21 [id number]
== END ==
LOC: M WHC 13:49
PROVIDERS: ATTEND Advanced Practice Midwife
DX: O44.02 Complete placenta previa NOS or without hemorrhage, second trimester (principal); Z3A.19 19 weeks gestation of pregnancy

== ENCOUNTER → 2021-06-29 | Outpatient (REF) | payer BC | LOC: M PLALAB 14:35 | PROVIDERS: ATTEND Obstetrics & Gynecology | DX: Z36.89 Encounter for other specified antenatal screening (principal); Z3A.22 22 weeks gestation of pregnancy ==

== ENCOUNTER → 2021-07-13 | Outpatient (CLI) | payer BC ==
--- NOTE | 2021-07-14 08:57 | REP ---
INDICATION: F/U ANATOMY COMPARISON: 06/13/2021 TECHNIQUE: Transabdominal obstetrical ultrasound with color Doppler evaluation. FINDINGS: Examination demonstrates a single live intrauterine in variable presentation. motion is identified by technologist. Placenta is noted both anteriorly and posteriorly, grade 1 with complete previa. Amniotic fluid volume is normal. Cervix measures 4.4 cm in length and appears closed. Two vessel cord noted. Selected gestational age: 24 weeks 0 days with JAY 11/02/2021. Gestational age by current measurements 24 weeks 2 days with JAY 10/31/2021. FHR equals 169 beats per minute. Estimated weight 690 grams (59thpercentile). Anatomical assessment demonstrates normal structures including four-chamber heart/cardiac ventricular outflow tracts. IMPRESSION: 1. Current examination again demonstrates complete placenta previa. 2. Evidence for 2 vessel cord. 3. In conjunction with prior examination anatomical assessment is complete and normal. <Electronically signed by Kevin Castorena > 07/14/21 [id number]
== END ==
LOC: M WHC 12:30
PROVIDERS: ATTEND Obstetrics & Gynecology
DX: Z36.89 Encounter for other specified antenatal screening (principal); Z3A.24 24 weeks gestation of pregnancy; O44.02 Complete placenta previa NOS or without hemorrhage, second trimester

== ENCOUNTER → 2021-08-04 | Outpatient (CLI) | payer BC ==
[2021-08-04 12:47] LABS: HEMATOCRIT 34.2 % (36.0-47.0); HEMOGLOBIN 11.8 g/dl (12.0-15.5); MEAN CORPUSCULAR HEMOGLOBIN 30.6 pg (27.0-33.0); MEAN CORPUSCULAR HGB CONC 34.5 g/dl (32.0-36.5); MEAN CORPUSCULAR VOLUME 88.8 fl (80.0-96.0); PLATELET COUNT, AUTOMATED 318 10^3/uL (150-450); RED BLOOD COUNT 3.85 10^6/uL (4.00-5.40); WHITE BLOOD COUNT 10.2 10^3/uL (4.0-10.0)
== END ==
LOC: M LAB 10:03
PROVIDERS: ATTEND Obstetrics & Gynecology
DX: Z36.89 Encounter for other specified antenatal screening (principal); Z3A.22 22 weeks gestation of pregnancy

== ENCOUNTER 2021-08-22 00:05 | Outpatient (CLI) | payer BC ==
[2021-08-22] VITALS (9 sets, daily range): BP systolic 111–124; BP diastolic 53–66
[~2021-08-22] VITALS: Ht 162.6 cm; Wt 89.8 kg
[2021-08-22] MEDS ORDERED: PRENTAB9 PO (00:41)
[2021-08-22] MEDS ORDERED: HOME MED LIST COMPLETE! XX SCH (00:45)
[2021-08-22] MEDS: BETAMETHASONE SOLUSPAN 6MG/ML 5ML VIAL (J0702 PER 3MG) IM SCH (01:04)
[2021-08-22 01:19] LABS: HEMATOCRIT 30.6 % (36.0-47.0); HEMOGLOBIN 10.7 g/dl (12.0-15.5); MEAN CORPUSCULAR HEMOGLOBIN 30.4 pg (27.0-33.0); MEAN CORPUSCULAR VOLUME 86.9 fl (80.0-96.0); PLATELET COUNT, AUTOMATED 266 10^3/uL (150-450); RED BLOOD COUNT 3.52 10^6/uL (4.00-5.40); WHITE BLOOD COUNT 9.1 10^3/uL (4.0-10.0)
[2021-08-22 01:30] LABS: INR 0.93; PROTHROMBIN TIME 12.9 SECONDS (12.7-14.5)
[2021-08-22 01:31] LABS: PARTIAL THROMBOPLASTIN TIME 29.1 SECONDS (25.9-37.0)
--- NOTE | 2021-08-22 02:56 | HPEPDOC ---
Obstetrical History & Physical General Date of Admission History of Present Illness 31-year-old G5, P2022 at 29+5 weeks gestation. EDC: 11/02/21, dated by LMP c/w first TM US. Patient presents after experiencing new spontaneous onset of bright red bleeding and passage of small blood clot. She has a known history/ diagnosis of complete placenta previa. She has refrained from any intercourse/anything in the vagina. Denies any painful uterine contractions/cramping. Denies any leakage of fluid. Reports regular movement. ROS: no SAMUEL, cp, sob, fever/chills/nausea/vomiting. course: Complete placenta previa; sentinel bleed at 10pm on 08/22/2021. Two-vessel cord; EFW 59th percentile (07/13/21) Elevated 1hr GCT 155; 3hr GTT not done yet; GDM? PMH: None SH: D&C Meds: vitamin All: [employer] PUBLISHING SPECIALIST: No STI or dysplasia OB: x 2, SAB x 2 Sochx: No tobacco, alcohol or drug use. FamHx: mother breast [place] 42yo labs: Blood type B+, antibody screen negative, HepBsAg neg, HIV neg, rubella immune, Hep C antibody negative, RPR nonreactive, CT/GC neg, urine culture negative, 1 hour glucose challenge test 155 (3hr not yet done), GBS unknown. imaging: Complete placenta previa (last official US on 07/13), 2VC, EFW 59th percentile. Past Medical History Allergies Coded Allergies: No Known Allergies (Unverified , 11/28/16) Medications Scheduled No.137/Iron/Folic Acd ( Vitamin Tablet) 1 Each Tablet, 1 TAB PO DAILY Physical Examination Physical Examination GENERAL: Alert and oriented times three. ABDOMEN: Gravid and non-tender to touch. HEART RATE: Regular rate and rhythm. LUNGS: Clear to auscultation (CTA). EXTREMITIES: No edema. No clonus. SSE: cervix is closed; mild to moderate amount of pooling in the vault (bro wn/clot), no active bright red bleeding from os. TVUS,marti: no evidence of cervical shortening/funneling. US was malfunctioning, but visually, cervix was long, no funneling, and at least above 3cm. AUS, limited: Transverse/breech, MVP 5 cm. BPP 10 out of 10 EFM: Cat I [place]: no e/o frequent uterine contractions. Item Value Date Time White Blood Count 9.1 10^3/uL 08/22/21103 Hemoglobin 10.7 g/dl L 08/22/21103 Hematocrit 30.6 % L 08/22/21103 Platelet Count 266 10^3/uL 08/22/21103 Prothrombin Time 12.9 SECONDS 08/22/21103 Prothromb Time International Ratio 0.93 08/22/21103 Activated Partial Thromboplast Time 29.1 SECONDS 08/22/21103 Fibrinogen 511 MG/DL H 08/22/21103 Vital Signs/I&O Vital Signs Date Time Temp Pulse Resp B/P (MAP) Pulse Ox O2 Delivery O2 Flow Rate FiO2 08/22/21 00:20 99.1 87 18 118/66 (83) Laboratory Data 24[facility] Laboratory Tests 2 08/22/21 01:04: Nucleated Red Blood Cells % (auto) 0.0, Prothrombin Time 12.9, Prothromb Time International Ratio 0.93, Activated Partial Thromboplast Time 29.1, Fibrinogen 511H CBC/BMP Laboratory Tests 08/22/21 01:04 Assessment/Plan Assessment 31-year-old -0-2-2 at 29+5 weeks gestation. Complete placenta previa with a sentinel bleeding episode. Thus far, bleeding appears to be self-limiting. Both maternal and status are stable and reassuring. Plan Continuous EFM/[place] Started course of Betamethasone Discussed diagnosis and plan of care; possible transfer of care given her gestational age. BEST WILLIAMSON DO Aug 22, 2021 02:56
[2021-08-22] MEDS ORDERED: FERROUS SULFATE 325MG TAB PO SCH (09:00)
--- NOTE | 2021-08-22 15:39 | REP ---
INDICATION: GROWTH WITH COMPLETE PREVIA COMPARISON: 07/13/2021 TECHNIQUE: Transabdominal obstetrical ultrasound with color Doppler evaluation. FINDINGS: Examination demonstrates a single live intrauterine in footling breech presentation. motion is identified by technologist. Placenta is noted anteriorly, grade 1 and with complete previa. Amniotic fluid volume is normal. Cervix measures 4.9 cm in length and appears closed.. Selected gestational age: 29 weeks 5 days with JAY 11/02/2021. Gestational age by current measurements 30 weeks 0 days with JAY 10/31/2021. FHR equals 139 beats per minute. Estimated weight 1492 grams (55thpercentile). REHAN: 14.7 cm Umbilical artery SD ratio: 2.53 IMPRESSION: Single live intrauterine in breech presentation. Complete previa. <Electronically signed by Kevin Castorena > 08/22/21 [id number]
[2021-08-23] MEDS: BETAMETHASONE SOLUSPAN 6MG/ML 5ML VIAL (J0702 PER 3MG) IM SCH (00:39)
--- NOTE | 2021-08-23 09:44 | IPNPDOC ---
Text Note Date of Service The patient was seen on 08/23/21. NOTE Pt is a 31yo at 29w6d EGA with a complicated by a complete placenta previa who presented on 08/21 with first episode of bright red vaginal bleeding. Since then she has no further bright red bleeding but continues to have brown spotting/discharge when wiping. She denies abdominal pain or contraction. No lof. +FM. FHT reassuring with 10x10 accels appropriate for gestational age. She received betamethasone x2 doses. Reviewed precautions and pelvic rest. Plan to dc home at this time with regular follow up in the office. Reaffirmed pelvic rest and encouraged routine daily activities. Strict bleeding precautions reviewed. Strict labor precautions reviewed. VS,Fishbone, I+O VS, Fishbone, I+O Vital Signs Date Time Temp Pulse Resp B/P (MAP) Pulse Ox O2 Delivery O2 Flow Rate FiO2 08/22/21 22:54 83 115/59 (77) 08/22/21 20:55 98.6 16 LAUREN PARR MD Aug 23, 2021 09:44
[2021-08-23] MEDS ORDERED: FERR1TAB8 PO (09:58)
== END 2021-08-23 10:25 | disposition home or self-care (01) ==
LOC: M LDO 00:05
PROVIDERS: ATTEND Obstetrics & Gynecology
DX: O44.13 Complete placenta previa with hemorrhage, third trimester (principal); Z3A.29 29 weeks gestation of pregnancy
CPT/HCPCS: 36415; 59025; 76815; 76816; 76820; 85027; 85384; 85460; 85610; 85730; 86850; 86900; 86901; 87081; 96372; G0378; G0463; J0702

== ENCOUNTER → 2021-09-01 | Outpatient (CLI) | payer BC ==
[~2021-09-01] MED LIST changes: +FERR1TAB8 PO; +PRENTAB9 PO
== END ==
LOC: M LAB 07:58
PROVIDERS: ATTEND Obstetrics & Gynecology
DX: Z34.82 Encounter for supervision of other normal pregnancy, second trimester (principal); Z36.89 Encounter for other specified antenatal screening

== ENCOUNTER → 2021-09-07 | Outpatient (CLI) | payer BC ==
--- NOTE | 2021-09-07 12:38 | REP ---
INDICATION: GROWTH, PREVIA , 2 VESSEL CORD. COMPARISON: Multiple of central cul ultrasounds, the most recent 08/22/2021. TECHNIQUE: Multiple ultrasound images of the gravid uterus were obtained. FINDINGS: 5, Para 2 LMP = 32 weeks 0 days, JAY(LMP) = 11/02/2021 Expected GA/1st sono = 19 weeks 5 days, JAY (expected) = 11/02/2021 Today's sono findings = 32 weeks 5 days, JAY (today's sono) = 10/28/2021 Number: 1 Position: Transverse with head to the left Heart Rate: 155 BPM S/D Ratio: 2.15. 2 vessel umbilical cord. Placenta Previa: Complete REHAN: 19.2 REHAN: Normal Range: 8.6-24.2 cm Cervix Length 4.3 cm MEASUREMENTS: BPD: 8.1 cm, consistent with 32 weeks 5 days, mean gestational age. HC: 29.5 cm, consistent with 32 weeks 4 days. AC: 28.8 cm, consistent with 32 weeks 5 days, mean gestational age. FL: 6.3 cm, consistent with 32 weeks 5 days, mean gestational age. Estimated Weight: 2039 grams 63 percentile Limited evaluation of the anatomy is unremarkable. IMPRESSION: 1. Single living intrauterine of 32 weeks 5 days, mean gestational age. 2. The estimated weight is 4 lb 7 oz and growth percentile is 61%. 3. There is a 2 vessel umbilical cord. 4. There is a complete placenta previa. <Electronically signed by Maynor Malik > 09/07/21 [id number]
== END ==
LOC: M WHC 10:22
PROVIDERS: ATTEND Advanced Practice Midwife
DX: O44.02 Complete placenta previa NOS or without hemorrhage, second trimester (principal); O09.899 Supervision of other high risk pregnancies, unspecified trimester; Z3A.32 32 weeks gestation of pregnancy

== ENCOUNTER 2021-09-15 04:57 | Outpatient (CLI) | payer BC ==
[2021-09-15] VITALS (11 sets, daily range): BP systolic 96–124; BP diastolic 52–69
[~2021-09-15] VITALS: Ht 162.6 cm; Wt 86.0 kg
[2021-09-15 05:53] LABS: HEMATOCRIT 31.3 % (36.0-47.0); HEMOGLOBIN 10.6 g/dl (12.0-15.5); MEAN CORPUSCULAR HEMOGLOBIN 29.4 pg (27.0-33.0); MEAN CORPUSCULAR HGB CONC 33.9 g/dl (32.0-36.5); MEAN CORPUSCULAR VOLUME 86.9 fl (80.0-96.0); PLATELET COUNT, AUTOMATED 277 10^3/uL (150-450)
--- NOTE | 2021-09-15 07:24 | HPE ---
HISTORY AND PHYSICAL DATE OF ADMISSION: 09/15/2021 HISTORY OF PRESENT ILLNESS: Joe is a 31-year-old 5 para 2-0-2-2 at 33 weeks and one day, estimated date of confinement (EDC) 11/02/2021 based on first trimester ultrasound. She presented to labor and delivery today with report of an episode of vaginal bleeding that soaked through her panty liner, her underwear and her shorts with notice of more blood in the toilet at approximately 0400. She does report some mild cramping that occurred in the evening throughout the night as well as some mild cramping at this point. She denies leakage of fluid, the fetus has been active. Her care was initiated at [facility] in the first trimester. Her course complicated by a complete placenta previa and two-vessel cord. She is also beta complete as of 08/23/2021. OBSTETRIC HISTORY: 1. August 17, 2015, 38 weeks, 7 pound 4 ounce female, vaginal delivery, no complications. 2. November 2016, miscarriage. 3. October 21, 2017, 39 week gestation, 9 pound 4 ounce male, vaginal delivery, no complications. 4. December 2020, spontaneous miscarriage. OBSTETRIC LABORATORY: B positive. Antibody screen negative. Gonorrhea and chlamydia negative. Syphilis negative. Hepatitis B negative. Hepatitis C negative. HIV negative. Rubella immune. Gestational diabetic screening abnormal at 155. Three-hour glucose tolerance test normal; fasting 79, one hour 142, two hour 131 and three hour 56. Most recent ultrasound on 09/07/2021 demonstrates the fetus in transverse position with a complete placenta previa, amniotic fluid index of 19.2 cm, estimated weight (EFW) 2039 grams, growth is in the normal percentile. PAST MEDICAL HISTORY: Noncontributory. SURGERIES: Dilatation and curettage (D and C). FAMILY HISTORY: Breast cancer - mother. SOCIAL HISTORY: She is a nonsmoker. Denies alcohol and drug use. She has no history of sexually-transmitted infections, and she denies history of abuse - physical, sexual and emotional. ALLERGIES: No known drug allergies. CURRENT MEDICATION: vitamin. OBJECTIVE/PHYSICAL EXAMINATION: Blood pressure is 122/69. She is alert and oriented times 3. She does not appear uncomfortable. heart rate is 145 with moderate variability, positive accelerations, negative decelerations. There is no pattern of regular contractions. There is, however, uterine irritability noted. Sterile Speculum Exam: No active bleeding observed from the cervical os. A small amount of brown old blood removed from the vaginal vault. ASSESSMENT: Intrauterine at 33-1/7 weeks; heart rate category 1; placenta previa; third trimester bleeding. PLAN: Observe at this time. Saline lock for IV access. Routine laboratories. [id number] (NPO) diet at this point. Bathroom privileges are allowed. I did review the risks and benefits with the patient. The plan of care is to expectantly manage at this time. She and her 's questions have been answered and have been verbally consented for emergency surgery and blood products if they were necessary.
[2021-09-15] MEDS ORDERED: LACTATED RINGER'S 1000 ML IV ONE (08:30)
--- NOTE | 2021-09-15 20:05 | IPNPDOC ---
Text Note Date of Service The patient was seen on 09/15/21. NOTE S: Patient doing well with no further bleeding. She is ambulated back forth to the bathroom. Reports active movement noted vaginal bleeding leakage of fluid or contractions. O: Vital signs stable is afebrile Category 1 tracing no regular contractions with tocometer GEN: well appearing, NAD ABD: gravid, nttp A/P: 31-year-old 3 para 2 at 33 weeks 1 day with a complete placenta previacurrently stable Reassuring status -We will continue to observe overnight she remained stable will discharge home -Strict modified bedrest and weekly appointments -We will move scheduled section to 36 weeks if she remains stable Adilene Kerr MD VS,Yara, I+O VS, Yara, I+O Laboratory Tests 09/15/21 05:40 Vital Signs Date Time Temp Pulse Resp B/P (MAP) Pulse Ox O2 Delivery O2 Flow Rate FiO2 09/15/21 19:02 98.2 85 16 124/60 (81) ADILENE KERR MD. Sep 15, 2021 20:05
[2021-09-16 02:30] VITALS: BP 87/49
[2021-09-16 02:31] VITALS: BP 86/50
[2021-09-16 02:43] VITALS: BP 95/53
[2021-09-16 02:52] VITALS: BP 97/57
[2021-09-16 05:03] VITALS: BP 90/52
== END 2021-09-16 05:45 | disposition home or self-care (01) ==
LOC: M LDO 04:57
PROVIDERS: ATTEND Advanced Practice Midwife
DX: O44.03 Complete placenta previa NOS or without hemorrhage, third trimester (principal); Z3A.33 33 weeks gestation of pregnancy
CPT/HCPCS: 59025; 85027; 86780; 86850; 86900; 86901; 86920; G0378; G0463

== ENCOUNTER → 2024-09-08 | Outpatient (CLI) | payer BC ==
[~2024-09-08] MED LIST changes: +PERCOCET PO
[2024-09-08 17:47] LABS: FREE T4 1.22 NG/DL (0.89-1.76); PROLACTIN 13.5 NG/ML
[2024-09-08 17:48] LABS: PROGESTERONE 0.96 NG/ML; THYROID STIMULATING HORMONE 1.444 uIU/ML (0.55-4.78)
== END ==
LOC: M PLALAB 14:46
PROVIDERS: ATTEND Obstetrics & Gynecology
DX: Z80.3 Family history of malignant neoplasm of breast (principal); N92.6 Irregular menstruation, unspecified

== ENCOUNTER → 2024-09-08 | Outpatient (REF) | payer BC ==
[2024-09-10 16:37] LABS: HPV APTIMA Not Detected (Not Detected)
== END ==
LOC: M PLALAB 15:39
PROVIDERS: ATTEND Obstetrics & Gynecology
DX: Z12.4 Encounter for screening for malignant neoplasm of cervix (principal); N76.0 Acute vaginitis
CPT/HCPCS: 87624; G0123

== ENCOUNTER → 2024-10-03 | Outpatient (CLI) | payer BC | LOC: M RAD 14:25 | PROVIDERS: ATTEND Obstetrics & Gynecology | DX: N92.6 Irregular menstruation, unspecified (principal); R93.89 Abnormal findings on diagnostic imaging of other specified body structures ==

== ENCOUNTER → 2024-11-18 | Outpatient (CLI) | payer BC | LOC: M PLALAB 14:15 | PROVIDERS: ATTEND Obstetrics & Gynecology | DX: N92.6 Irregular menstruation, unspecified (principal) ==

== ENCOUNTER → 2025-01-26 | Outpatient (CLI) | payer BC ==
[~2025-01-26] MED LIST changes: +ISOVUE-370 76% 100ML VIAL As Ordered ONE
== END ==
LOC: M RADPRO 11:58
PROVIDERS: ATTEND Obstetrics & Gynecology
DX: N97.9 Female infertility, unspecified (principal)
CPT/HCPCS: 58340; 74740; Q9967